=== PATIENT | female | born 1970 | race Caucasian/White ===

== ENCOUNTER 2017-02-04 14:45 | Outpatient (CLI) | payer BC ==
--- NOTE | 2017-02-04 16:20 | MMO ---
BILATERAL SCREENING MAMMOGRAM: Comparison: Prior mammograms dating back to June 2012. This study is interpreted with the assistance of computer aided detection. FINDINGS: There is heterogeneously dense breast parenchyma which limits sensitivity of mammogram and could obs cure underlying pathology. Scattered benign appearing parenchymal calcifications at each breast are present, stable appearing. IMPRESSION: BIRADS category 2 - benign findings. Annular screening mammography recommended. POS: [facility]
== END 2017-02-04 14:46 | disposition home or self-care (01) ==
LOC: MAMMO 14:45
PROVIDERS: ATTEND Family Medicine
DX: Z12.31 Encounter for screening mammogram for malignant neoplasm of breast (principal)
CPT/HCPCS: 77067; G0202

== ENCOUNTER 2017-12-09 07:32 | Outpatient (CLI) | payer BC | END 2017-12-09 07:33 | disposition home or self-care (01) | LOC: BICULT 07:32 | PROVIDERS: ATTEND Internal Medicine Gastroenterology | DX: R10.13 Epigastric pain (principal); R11.0 Nausea; K76.0 Fatty (change of) liver, not elsewhere classified; K80.20 Calculus of gallbladder without cholecystitis without obstruction; K82.8 Other specified diseases of gallbladder; N20.0 Calculus of kidney | CPT/HCPCS: 76705 ==

== ENCOUNTER 2020-12-17 15:03 | Outpatient (CLI) | payer BC | END 2020-12-17 15:04 | disposition home or self-care (01) | LOC: BICRAD 15:03 | PROVIDERS: ATTEND Internal Medicine Rheumatology | DX: M25.551 Pain in right hip (principal); M25.751 Osteophyte, right hip | CPT/HCPCS: 73523 ==

== ENCOUNTER 2021-12-17 08:56 | Outpatient (CLI) | payer BC | END 2021-12-17 08:57 | disposition home or self-care (01) | LOC: BICRAD 08:56 | PROVIDERS: ATTEND Nurse Practitioner Family | DX: M25.511 Pain in right shoulder (principal) ==

== ENCOUNTER 2024-02-23 15:04 | Outpatient (CLI) | payer BC ==
[~2024-02-23 15:04] MED LIST: Iopamidol 370 76% 100 ML VIAL ONE
== END 2024-02-23 15:05 | disposition home or self-care (01) ==
LOC: CT 15:04
PROVIDERS: ATTEND Physician Assistant Medical
DX: K21.00 Gastro-esophageal reflux disease with esophagitis, without bleeding (principal); K52.9 Noninfective gastroenteritis and colitis, unspecified; R10.13 Epigastric pain; A04.72 Enterocolitis due to Clostridium difficile, not specified as recurrent; R16.0 Hepatomegaly, not elsewhere classified; K82.4 Cholesterolosis of gallbladder; N20.0 Calculus of kidney; N28.1 Cyst of kidney, acquired
CPT/HCPCS: 74177; Q9967

== ENCOUNTER 2024-06-22 12:38 | Outpatient (CLI) | payer BC ==
[~2024-06-22 12:38] MED LIST changes: -Iopamidol 370 76% 100 ML VIAL ONE; +Magnevist 469MG/ML 20 ML VIAL ONE
== END 2024-06-22 12:39 | disposition home or self-care (01) ==
LOC: MRI 12:38
PROVIDERS: ATTEND Physician Assistant Medical
DX: K76.9 Liver disease, unspecified (principal); K76.0 Fatty (change of) liver, not elsewhere classified; R16.0 Hepatomegaly, not elsewhere classified
CPT/HCPCS: 74183